=== PATIENT | female | born 1990 | race Caucasian/White ===

== ENCOUNTER 2022-10-21 23:16 | Emergency (ER) | payer SELFPAY ==
[2022-10-22] MEDS ORDERED: Misoprostol 100 MCG Tab PO STA (01:11)
[2022-10-22] MEDS ORDERED: Misoprostol 200 MCG Tab ONE (01:16)
[2022-10-22] MEDS ORDERED: Misoprostol 200 MCG Tab PO ONE (01:46)
[2022-10-22] MEDS ORDERED: Ondansetron 4 MG/2 ML SDV IVPUSH ONE (02:54)
[2022-10-22] MEDS ORDERED: Morphine 4 MG/ML Syringe IVPUSH ONE (03:03)
== END 2022-10-22 05:00 | disposition home or self-care (01) ==
LOC: JD.ED 23:16
DX: O03.9 Complete or unspecified spontaneous abortion without complication (principal); Z3A.14 14 weeks gestation of pregnancy; E66.9 Obesity, unspecified; Z68.42 Body mass index [BMI] 45.0-49.9, adult; Z88.6 Allergy status to analgesic agent; Z88.2 Allergy status to sulfonamides; Z91.040 Latex allergy status; Z86.16 Personal history of COVID-19; Z87.891 Personal history of nicotine dependence
CPT/HCPCS: 36415; 85025; 96374; 96375; 99284; A9270; J2270; J2405